=== PATIENT | male | born 1995 | race African-American/Black ===

== ENCOUNTER 2019-03-29 04:07 | Emergency (ER) | payer SELFPAY ==
[~2019-03-29] VITALS: Ht 182.9 cm; Wt 74.8 kg
[2019-03-29 04:30] VITALS: BP 135/77
== END 2019-03-29 07:32 | disposition left against medical advice (07) ==
LOC: ER 04:07
DX: K62.5 Hemorrhage of anus and rectum (principal); Z53.29 Procedure and treatment not carried out because of patient's decision for other reasons